=== PATIENT | male | born 1975 | race Caucasian/White ===

== ENCOUNTER 2016-10-19 16:55 | Emergency (ER) | payer MEDICARE, MEDICAID ==
[~2016-10-19] VITALS: Ht 175.3 cm; Wt 78.8 kg
[2016-10-19] MEDS ORDERED: PROMETHAZINE 25 MG/ML (PHENERGAN) 1 ML VIAL IM ONE (17:35)
[2016-10-19] MEDS ORDERED: ONDANSETRON 4 MG (ZOFRAN) ORAL DISSOLVE TAB PO ONE (17:35)
[2016-10-19] MEDS ORDERED: HYDROmorphone 2 MG/ML (DILAUDID) 1 ML SYRINGE IM ONE (17:35)
[2016-10-19 17:53] VITALS: BP 144/76
== END 2016-10-19 17:55 | disposition home or self-care (01) ==
LOC: ED 16:57
DX: G43.909 Migraine, unspecified, not intractable, without status migrainosus (principal)
CPT/HCPCS: 96372; 99282; A9270; J1170; J2550

== ENCOUNTER → 2016-11-04 | Emergency (ER) | payer MEDICARE, MEDICAID ==
[~2016-11-04] VITALS: Ht 175.3 cm; Wt 76.7 kg
[~2016-11-04] MED LIST: HYDROmorphone 2 MG/ML (DILAUDID) 1 ML SYRINGE IV ONE; PROMETHAZINE 25 MG/ML (PHENERGAN) 1 ML VIAL IM ONE
--- NOTE | 2016-11-04 16:01 | NUR ---
PT FOUND SITTING IN RM 8 CHAIR WITH BILAT RAILS UP. ALL MONITORING EQUIPTMENT OFF & EMESIS BAG LAYING ON THE FLOOR. PT INFORMED THAT HE SHOULD CALL FOR ASSISTANCE TO GET UP NEXT TIME & HE ASKS IF HE CAN REMAIN SITTING IN CHAIR. PT ALERT & ORIENTED WITH CONTINUED HEADACHE. CL
[2016-11-04 19:14] VITALS: BP 113/82
== END | disposition home or self-care (01) ==
LOC: EDUNIT# 14:12 → ED 14:14
DX: G43.909 Migraine, unspecified, not intractable, without status migrainosus (principal)
CPT/HCPCS: 96372; 96374; 99282; J1170; J2550

== ENCOUNTER 2017-01-08 07:04 | Emergency (ER) | payer MEDICARE, MEDICAID ==
[~2017-01-08] VITALS: Ht 175.3 cm; Wt 75.0 kg
[~2017-01-08 07:04] MED LIST changes: +ALPR0.25; +ALPR0.5T PO; +ASPI-38; +CEPH-331 PO; +CEPH-507 PO; +CLIN-79 PO; +CLON0.1T PO; +FLUO20CA42 PO; -HYDROmorphone 2 MG/ML (DILAUDID) 1 ML SYRINGE IV ONE; +LEVO750T39 PO; +LURA20TA PO; +LURA80TA PO; +MECL-105 PO; +MODA200T12; +MULT1TAB69 PO; +NF-DES50T PO; +OMG1KC PO; +OXYC-109 PO; +OXYC1TAB12; +OXYC1TAB12 PO; +OXYC1TAB87 PO; +OXYC30TA77; +PERCOCET; +PRED20TA PO; +PRM25T PO; -PROMETHAZINE 25 MG/ML (PHENERGAN) 1 ML VIAL IM ONE; +PROP10TA GT; +PROP10TA8 PO; +SIMV5TAB; +SULF1TAB35 PO
[2017-01-08] MEDS ORDERED: HALOPERIDOL 5 MG/ML (HALDOL) 1 ML AMP IM ONE (07:25)
[2017-01-08] MEDS ORDERED: diphenhydrAMINE 50 MG/ML INJ (BENADRYL) IM ONE (07:25)
[2017-01-08] MEDS ORDERED: LORazepam 2 MG/ML (ATIVAN) 1 ML VIAL IM ONE (07:25)
[2017-01-08 07:52] VITALS: BP 123/87
== END 2017-01-08 07:52 | disposition home or self-care (01) ==
LOC: EDUNIT# 07:04 → ED 07:07
DX: R51 Headache (principal)
CPT/HCPCS: 96372; 99282; J1200; J1630; J2060